=== PATIENT | male | born 2000 | race Caucasian/White ===

== ENCOUNTER 2018-04-29 14:13 | Emergency (ER) | payer OTHER ==
[2018-04-29 14:17] VITALS: BP 130/83
--- NOTE | 2018-04-29 14:25 | ED Physician Documentation ---
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 and he injured the right pinky) Where injury occurred: Home Timing - onset: Today Review of Systems Constitutional: reports: Reviewed and negative Cardiac: reports: Reviewed and negative Respiratory: reports: Reviewed and negative PD PAST MEDICAL HISTORY - Present Medications Home Medications: Ambulatory Orders Medication Instructions Recorded Confirmed No Known Home Medications 04/29/18 04/29/18 - Allergies Allergies/Adverse Reactions: Allergies Allergy/AdvReac Type Severity Reaction Status Date / Time No Known Drug Allergies Allergy Verified 04/29/18 14:18 PD ED PE NORMAL - Vitals Vital signs reviewed: Yes - General General: Alert and oriented X 3, No acute distress - Extremities Extremities: Other (Right upper extremity is nontender with full range of motion except for the pinky. He is tender at the PIP but with full range of motion there. He is also subluxed the proximal nail bed completely over the skin.) - Neuro Neuro: Alert and oriented X 3, Normal speech Results - Vitals Vitals: Vital Signs - 24 hr 04/29/18 14:15 Temperature 36.9 C Heart Rate 89 Respiratory 16 Rate Blood Pressure 130/83 H O2 Saturation 100 Oxygen O2 Source Room air - Rads (name of study) R 5th finger Radiology: EMP read contemporaneously (I see nondisplaced tuft fracture) Procedures - General procedure General procedure: A digital block was done of the right fifth finger in standard fashion with buffered lidocaine and then after anesthesia had taken effect the proximal nail bed which was over the skin was worked back under the skin with a hemostat with good effect and then Dermabonded into place. - Splint (location) R 5th finger Splint applied by: Physician Type of splint: Metal foam finger splint Other: Patient tolerated well, No complications, Neurovascular intact PD MEDICAL DECISION MAKING - Sepsis Event Vital Signs: Vital Signs - 24 hr 04/29/18 14:15 Temperature 36.9 C Heart Rate 89 Respiratory 16 Rate Blood Pressure 130/83 H O2 Saturation 100 Oxygen O2 Source Room air Departure - Departure Disposition: 01 Home, Self Care Clinical Impression: Closed fracture of tuft of distal phalanx of finger Fingernail injury Qualifiers: Encounter type: initial encounter Laterality: right Qualified Code(s): S69.91XA - Unspecified injury of right wrist, hand and finger(s), initial encounter Condition: Good Record reviewed to determine appropriate education?: Yes Instructions: ED Fx Finger Closed Follow-Up: [facility] [Provider Group] Comments: Tylenol or ibuprofen as needed for pain. Follow-up with orthopedics office in 1 week, call tomorrow to check fracture healing Your blood pressure was elevated today on check into the emergency department. This does not mean that you have hypertension, it is a common phenomenon to come to the emergency department and have elevated blood pressure. I recommend that you see your primary care physician within the week to have it rechecked when you are feeling better.
[2018-04-29] MEDS ORDERED: BUFFERED LIDOCAINE 10 ML SYRINGE ONE (14:26)
--- NOTE | 2018-04-29 15:32 | XRAY Report ---
Reason: R 5th fionger inj Procedure Date: 04/29/2018 Accession Number: [id number] / [id number] Procedure: XR - Finger(s) RT CPT Code: FULL RESULT: EXAM: RIGHT FIFTH DIGIT RADIOGRAPHY EXAM DATE: 04/29/2018 03:07 PM. CLINICAL HISTORY: Right finger pain. COMPARISON: None. TECHNIQUE: 3 views. FINDINGS: Bones: There is subtle lucency in the shaft of the distal phalanx of the fifth finger suspicious for nondisplaced fracture. The remainder osseous structures are intact. Joints: Normal. No subluxations. Soft Tissues: Normal. No soft tissue swelling. IMPRESSION: Nondisplaced shaft fracture of the distal phalanx of the fifth finger suspected. Follow-up radiographs in 10-14 days could be helpful in further evaluation. [facility]
== END 2018-04-29 15:32 | disposition home or self-care (01) ==
LOC: ED 14:13
DX: S62.666A Nondisplaced fracture of distal phalanx of right little finger, initial encounter for closed fracture (principal); S69.91XA Unspecified injury of right wrist, hand and finger(s), initial encounter; Y93.79 Activity, other specified sports and athletics; Y92.39 Other specified sports and athletic area as the place of occurrence of the external cause; R03.0 Elevated blood-pressure reading, without diagnosis of hypertension
CPT/HCPCS: 11760; 42700; 73140; 99282; 99283